=== PATIENT | female | born 1985 | race Caucasian/White ===

== ENCOUNTER 2017-01-02 21:05 | Inpatient (IN) | payer BC ==
[~2017-01-02] VITALS: Ht 157.5 cm; Wt 96.5 kg
[~2017-01-02 21:05] MED LIST: ALDOMET 250MG250 MG PO; AMOXICILLIN 8751 TAB PO; ENULOSE10 GM/151 PO; GAS AID MAXIMU125 MG PO; LEVAQUIN PO; MIRALAX PA17 GM/Dose PO; MIRENA; MOTRIN 600600 MG/TAB PO; MUCINEX D 12001 TER PO; PERCOCET 325 MG1 TA2 PO; PROCARDIA XL 6060 MG PO; SYNTHROID0.088 MG/T PO; TYLENOL 325MG325 MG PO; ZYRTEC 10MG10 MG PO
[2017-01-02 21:53] LABS: BASO % 0.4 % (0.0-2.0); EOS % 0.1 % (0-4.0); GRAN # 6.6 (1.4-6.5); GRAN % 82.2 % (42.2-75.2); HEMATOCRIT 41.2 % (37.0-47.0); HEMOGLOBIN 13.3 g/dl (12.5-16.0); LYMPH # 0.8 (1.2-3.4); LYMPH % 10.4 % (20.0-51.0); MEAN CELL VOLUME 88 fl (80.0-100.0); MEAN CORPUSCULAR HEMOGLOBIN 28 pg (27.0-31.0); MEAN CORPUSCULAR HGB CONC 32 g/dl (33.0-37.0); MEAN PLATELET VOLUME 10.4 fl (7.4-10.4); MONO # 0.5 (0.1-0.6); MONO % 6.5 % (1.7-9.3); PLATELET COUNT 261 K/mm3 (130-400); RED BLOOD COUNT 4.69 M/mm3 (4.10-5.30); REDCELL DISTRIBUTION WIDTH-CV 13.1 % (11.5-14.5)
[2017-01-02 22:01] LABS: ADJUSTED CALCIUM 8.9 mg/dL (8.4-10.2); ALBUMIN 4.2 gm/dL (3.5-5.0); BILIRUBIN,TOTAL 0.7 mg/dL (0.0-1.0); CALCIUM 9.1 mg/dL (8.4-10.2); CREATININE, serum 0.85 mg/dL (0.52-1.25); POTASSIUM 3.7 mmol/L (3.4-5.0); TOTAL PROTEIN 8.2 gm/dL (6.4-8.2)
[2017-01-02 22:12] LABS: INFLUENZA B NEGATIVE
[2017-01-02] MEDS ORDERED: ALBUTEROL SULFAT8 MG PO (22:23)
[2017-01-02] MEDS ORDERED: ALBUTEROL1.25 MG/3 IH (22:23)
[2017-01-02] MEDS ORDERED: TYLENOL 325MG325 MG PO (22:24)
[2017-01-02] MEDS ORDERED: MUCINEX 60600 MG/TA1 PO (22:24)
[2017-01-03] VITALS (7 sets, daily range): BP systolic 94–136; BP diastolic 59–77; PULSE 68–113; TEMP 98.1–99.1
[2017-01-03 07:54] LABS: CALCIUM 8.5 mg/dL (8.4-10.2); CREATININE, serum 0.61 mg/dL (0.52-1.25); POTASSIUM 3.9 mmol/L (3.4-5.0)
[2017-01-03] MEDS ORDERED: KLONOPIN 0.5MG0.5 MG PO (21:33)
[2017-01-04 07:40] VITALS: BP 126/82; PULSE 91; TEMP 98.5
[2017-01-04 07:43] LABS: BASO % 0.2 % (0.0-2.0); GRAN # 12.1 (1.4-6.5); LYMPH % 7.3 % (20.0-51.0); MEAN CELL VOLUME 90 fl (80.0-100.0); MEAN CORPUSCULAR HGB CONC 32 g/dl (33.0-37.0); MEAN PLATELET VOLUME 10.7 fl (7.4-10.4); MONO # 0.4 (0.1-0.6); MONO % 2.8 % (1.7-9.3); PLATELET COUNT 263 K/mm3 (130-400); RED BLOOD COUNT 3.83 M/mm3 (4.10-5.30); REDCELL DISTRIBUTION WIDTH-CV 13.4 % (11.5-14.5); WHITE BLOOD COUNT 13.6 K/mm3 (4.8-10.8)
[2017-01-04 08:08] LABS: CALCIUM 8.4 mg/dL (8.4-10.2); CREATININE, serum 0.61 mg/dL (0.52-1.25); POTASSIUM 3.4 mmol/L (3.4-5.0)
[2017-01-04 08:22] LABS: HEMATOCRIT 34.3 % (37.0-47.0); HEMOGLOBIN 10.9 g/dl (12.5-16.0); MEAN CORPUSCULAR HEMOGLOBIN 28 pg (27.0-31.0)
[2017-01-04 10:42] VITALS: TEMP 102.6
[2017-01-04 12:00] VITALS: BP 128/62; PULSE 108; TEMP 100.4
[2017-01-04 17:36] VITALS: BP 155/84; PULSE 114; TEMP 103.1
[2017-01-04 19:29] VITALS: BP 119/81; PULSE 104; TEMP 100.6
[2017-01-04 23:39] VITALS: BP 137/89; PULSE 108; TEMP 103
[2017-01-05] VITALS (8 sets, daily range): BP systolic 100–119; BP diastolic 62–68; PULSE 96–111; TEMP 98.5–103.2
[2017-01-05 02:56] LABS: PH 6 (5-8); SQUAMOUS EPITHELIAL 0-2 /hpf; URINE APPEARANCE Clear; URINE BACTERIA None Seen /hpf; URINE BILIRUBIN Negative (NEGATIVE); URINE BLOOD Negative (NEGATIVE); URINE COLOR Yellow; URINE GLUCOSE Negative (NEGATIVE); URINE KETONE Negative (NEGATIVE); URINE RBC 0-2 /hpf; URINE UROBILINOGEN Negative (NEGATIVE); URINE WBC 0-2 /hpf
[2017-01-05 08:49] LABS: BASO % 0.1 % (0.0-2.0); GRAN # 7.4 (1.4-6.5); GRAN % 88.2 % (42.2-75.2); LYMPH # 0.7 (1.2-3.4); LYMPH % 8.3 % (20.0-51.0); MEAN CELL VOLUME 88 fl (80.0-100.0); MEAN CORPUSCULAR HGB CONC 32 g/dl (33.0-37.0); MEAN PLATELET VOLUME 10.4 fl (7.4-10.4); MONO # 0.2 (0.1-0.6); MONO % 2.3 % (1.7-9.3); PLATELET COUNT 257 K/mm3 (130-400); RED BLOOD COUNT 4.01 M/mm3 (4.10-5.30); REDCELL DISTRIBUTION WIDTH-CV 13.8 % (11.5-14.5); WHITE BLOOD COUNT 8.3 K/mm3 (4.8-10.8)
[2017-01-05 09:06] LABS: CALCIUM 7.7 mg/dL (8.4-10.2); CREATININE, serum 0.72 mg/dL (0.52-1.25)
[2017-01-05 09:10] LABS: POTASSIUM 2.7 mmol/L (3.4-5.0)
[2017-01-05 09:12] LABS: HEMATOCRIT 35.4 % (37.0-47.0); HEMOGLOBIN 11.3 g/dl (12.5-16.0); MEAN CORPUSCULAR HEMOGLOBIN 28 pg (27.0-31.0)
[2017-01-06] VITALS (8 sets, daily range): BP systolic 100–170; BP diastolic 58–81; PULSE 88–123; TEMP 98.1–102.9
[2017-01-06 07:09] LABS: MEAN CELL VOLUME 91 fl (80.0-100.0); MEAN CORPUSCULAR HGB CONC 32 g/dl (33.0-37.0); MEAN PLATELET VOLUME 10.6 fl (7.4-10.4); PLATELET COUNT 211 K/mm3 (130-400); RED BLOOD COUNT 3.59 M/mm3 (4.10-5.30); REDCELL DISTRIBUTION WIDTH-CV 13.9 % (11.5-14.5); WHITE BLOOD COUNT 6.1 K/mm3 (4.8-10.8)
[2017-01-06 07:26] LABS: CALCIUM 7.7 mg/dL (8.4-10.2); CREATININE, serum 0.58 mg/dL (0.52-1.25); PHOSPHOROUS 2.7 mg/dL (2.5-4.5); POTASSIUM 3.7 mmol/L (3.4-5.0)
[2017-01-06 07:54] LABS: HEMATOCRIT 32.5 % (37.0-47.0); HEMOGLOBIN 10.4 g/dl (12.5-16.0); MEAN CORPUSCULAR HEMOGLOBIN 29 pg (27.0-31.0)
[2017-01-06 07:55] LABS: ADD PATHOLOGY DIFF REVIEW NO
[2017-01-06 12:58] LABS: BAND 17 % (0-10); NEUTROPHILS 58 % (42.0-75.2); PLATELET ESTIMATE NORMAL (NORMAL); TOTAL CELLS COUNTED 100
[2017-01-06 13:26] LABS: C-REACTIVE PROTEIN 24.5 mg/dL (0.0-0.9)
[2017-01-07 03:54] VITALS: BP 113/75; PULSE 93; TEMP 98.2
[2017-01-07 07:33] LABS: POTASSIUM 3.4 mmol/L (3.4-5.0)
[2017-01-07 07:42] VITALS: BP 123/77; PULSE 90; TEMP 98.3
[2017-01-07 11:44] VITALS: BP 112/71; PULSE 83; TEMP 98.4
[2017-01-07 14:25] LABS: THYROID STIMULATING HORMONE 3.37 uIU/mL (0.465-4.680)
[2017-01-07 16:34] VITALS: BP 129/71; PULSE 87; TEMP 99.5
[2017-01-07] MEDS ORDERED: CHERATUSSIN AC120 ML PO (17:44)
[2017-01-07] MEDS ORDERED: LEVAQUIN 750MG750 M1 PO (17:46)
[2017-01-07 19:05] VITALS: BP 133/74; PULSE 88; TEMP 98.7
[2017-01-08 22:41] LABS: PROT-CREAT RATIO, URINE 0.7 (())
== END 2017-01-07 22:58 | disposition home or self-care (01) | DRG 871 ==
LOC: COL.ER 21:05 → MEDICAL 22:54
PROVIDERS: Emergency Medicine; Internal Medicine; Internal Medicine Pulmonary Disease; Nurse Practitioner Family
DX: A41.9 Sepsis, unspecified organism (principal); J12.9 Viral pneumonia, unspecified; J96.01 Acute respiratory failure with hypoxia; E87.1 Hypo-osmolality and hyponatremia; E87.6 Hypokalemia; J20.9 Acute bronchitis, unspecified; J11.1 Influenza due to unidentified influenza virus with other respiratory manifestations; E87.8 Other disorders of electrolyte and fluid balance, not elsewhere classified
CPT/HCPCS: 99223-AI; 99233-AI; 99239; A9284; J0692; J1650; J1956; J2930; J7030; J7512; Q9967

== ENCOUNTER 2017-01-22 08:07 | Day surgery (SDC) | payer BC ==
[~2017-01-22] VITALS: Ht 157.5 cm; Wt 100.9 kg
[~2017-01-22 08:07] MED LIST changes: +ALBUTEROL SULFAT8 MG PO; +ALBUTEROL1.25 MG/3 IH; +CHERATUSSIN AC120 ML PO; +KLONOPIN 0.5MG0.5 MG PO; +LEVAQUIN 750MG750 M1 PO; +MUCINEX 60600 MG/TA1 PO
[2017-01-22 09:17] VITALS: BP 119/71; PULSE 90; TEMP 98.4
[2017-01-22] MEDS ORDERED: TESSALON PERLE200 MG PO (09:22)
[2017-01-22 11:00] VITALS: BP 117/72; PULSE 79; TEMP 98.1
[2017-01-22 11:15] VITALS: BP 115/70; PULSE 76
[2017-01-22 11:30] VITALS: BP 114/61; PULSE 76
[2017-01-22 14:09] LABS: BRONCH WASH FLUID MONONUCLEAR 29 % (0-75); BRONCH WASH POLY - PMN 71 % (0-25)
== END 2017-01-22 11:45 | disposition home or self-care (01) ==
LOC: SDCO 08:07
PROVIDERS: Internal Medicine Pulmonary Disease
DX: J18.9 Pneumonia, unspecified organism (principal)
CPT/HCPCS: J2704; J3010; J7120

== ENCOUNTER 2017-10-03 16:00 | Emergency (ER) | payer BC ==
[~2017-10-03] VITALS: Ht 157.5 cm; Wt 103.6 kg
[~2017-10-03 16:00] MED LIST changes: +TESSALON PERLE200 MG PO
[2017-10-03 16:04] VITALS: BP 119/69
[2017-10-03 16:58] LABS: BASO # 0.1 (0.0-0.2); BASO % 0.5 % (0.0-2.0); EOS # 0.1 (0.0-0.7); EOS % 0.4 % (0-4.0); GRAN # 8.5 (1.4-6.5); GRAN % 71.6 % (42.2-75.2); HEMATOCRIT 42.6 % (37.0-47.0); HEMOGLOBIN 13.8 g/dl (12.5-16.0); LYMPH # 2.4 (1.2-3.4); LYMPH % 20.5 % (20.0-51.0); MEAN CELL VOLUME 90 fl (80.0-100.0); MEAN CORPUSCULAR HEMOGLOBIN 29 pg (27.0-31.0); MEAN CORPUSCULAR HGB CONC 32 g/dl (33.0-37.0); MEAN PLATELET VOLUME 10.9 fl (7.4-10.4); MONO # 0.8 (0.1-0.6); MONO % 6.7 % (1.7-9.3); PLATELET COUNT 279 K/mm3 (130-400); RED BLOOD COUNT 4.73 M/mm3 (4.10-5.30); WHITE BLOOD COUNT 11.8 K/mm3 (4.8-10.8)
[2017-10-03 17:07] LABS: ADJUSTED CALCIUM 8.9 mg/dL (8.4-10.2); ALBUMIN 4.3 gm/dL (3.5-5.0); BILIRUBIN,TOTAL 0.4 mg/dL (0.0-1.0); C-REACTIVE PROTEIN 1.2 mg/dL (0.0-0.9); CALCIUM 9.1 mg/dL (8.4-10.2); CREATININE, serum 0.67 mg/dL (0.52-1.25); POTASSIUM 3.9 mmol/L (3.4-5.0); TOTAL PROTEIN 7.5 gm/dL (6.4-8.2)
[2017-10-03] MEDS ORDERED: BIAXIN 500MG T500 MG PO (17:11)
[2017-10-03] MEDS ORDERED: ZANTAC 150MG T150 MG PO (17:11)
[2017-10-03] MEDS ORDERED: PRILOSEC 20MG20 MG PO (17:12)
[2017-10-03] MEDS ORDERED: ACIDOPHILIS (17:12)
[2017-10-03 18:49] VITALS: PULSE 74; TEMP 98.3
== END 2017-10-03 18:44 | disposition home or self-care (01) ==
LOC: COL.ER 16:00
PROVIDERS: Nurse Practitioner
DX: N83.201 Unspecified ovarian cyst, right side (principal); Z32.02 Encounter for pregnancy test, result negative
CPT/HCPCS: J7030; J7050; Q9967

== ENCOUNTER → 2017-12-01 | Outpatient (CLI) | payer BC ==
[~2017-12-01] MED LIST changes: +ACIDOPHILIS; +BIAXIN 500MG T500 MG PO; +PRILOSEC 20MG20 MG PO; +ZANTAC 150MG T150 MG PO
== END ==
LOC: COL.RAD 14:16
DX: K21.0 Gastro-esophageal reflux disease with esophagitis (principal)

== ENCOUNTER 2019-12-28 05:16 | Observation (INO) | payer BC ==
[2019-12-28] VITALS (9 sets, daily range): BP systolic 98–129; BP diastolic 45–74; PULSE 62–88; TEMP 97.7–98.2
[~2019-12-28] VITALS: Ht 157.5 cm; Wt 94.8 kg
[2019-12-28] MEDS ORDERED: ZYRTEC 10MG10 MG PO (06:00)
[2019-12-28] MEDS ORDERED: SINGULAIR 110 MG/TAB PO (06:00)
[2019-12-28] MEDS ORDERED: GLUCOPHAGE500 MG/TAB PO (06:01)
[2019-12-28] MEDS ORDERED: MASON NATURAL2000 IU PO (06:01)
[2019-12-28] MEDS ORDERED: ONCOVITE1 TAB PO (06:01)
[2019-12-28] MEDS ORDERED: PROAIR HFA0.09 MG/AC IH (06:02)
[2019-12-28] MEDS ORDERED: 00186-0372-20 IH (06:02)
[2019-12-28] MEDS ORDERED: PERCOCET 325 MG1 TA2 PO (07:27)
[2019-12-28] MEDS ORDERED: ESTRACE 1MG1 MG/TAB PO (07:27)
[2019-12-28] MEDS ORDERED: COLACE 100100 MG/CAP PO (07:27)
[2019-12-28] MEDS ORDERED: MOTRIN 800800 MG/TAB PO (07:27)
--- NOTE | 2019-12-28 11:46 | NUR ---
Patient to room via bed. Alert and oriented x3. Patient rating pain in abd 5/10. describes as crampy pain. Requests to have pain medication as soon as she can. Family in room with the patient.
--- NOTE | 2019-12-28 11:55 | NUR ---
Administered Percocet as prescribed. Lap sites x4 on abd with bandaids CDI. Patient lying in bed with eyes open at this time. Family in room with the patient.
--- NOTE | 2019-12-28 12:45 | NUR ---
Patient up to bathroom to urinate. Gait slow, required assist of two to bathroom and back to bed. Having nausea up moving around. Zofran administered as prescribed. Patient assisted back into the bed. Oxygen on at 1.5L/NC. Family remains in room with the patient.
--- NOTE | 2019-12-28 14:26 | NUR ---
Patient ambulates to bathroom to void. Has some lightheadedness with position changes. Resolves when stays in same position for a few seconds. Voids clear yellow urine. Very minimal bloody discharge on toilet paper. Returns to bed. Gets a little nauseated but it resolves. Provided patient with jello and apple juice to try to eat. Explained that if she does okay with this we can get her regular diet for supper. Family remains in room. Patient denies further needs.
--- NOTE | 2019-12-28 16:36 | NUR ---
Having nausea and pain, requesting medication for nausea and pain. Ambulates into bathroom to urinate. Voids small amount clear yellow urine. One small pea size spot of blood noted on pad. Has small amount of emesis. Returns to bed. Assisted to comfortable position. Zofran administered as prescribed. Administered Percocet as prescribed for pain.
--- NOTE | 2019-12-28 17:44 | NUR ---
Patient ambulates into hallway and back to room. Goes to bathroom prior to getting into bed. Voids clear yellow urine. Returns to bed. Has some nausea at this time. Pain is better at this time.
--- NOTE | 2019-12-28 19:48 | NUR ---
Called facility environmental technician doc, Dr. Adrian Guan reguarding patients request for tylenol and also requested chloraceptic spray for sore throat. See new order, read back.
[2019-12-29 01:53] VITALS: BP 118/56; PULSE 81; TEMP 98.5
[2019-12-29 06:03] VITALS: BP 99/63; PULSE 99; TEMP 98.4
[2019-12-29 07:27] VITALS: BP 94/57; PULSE 60; TEMP 98.8
--- NOTE | 2019-12-29 10:54 | NUR ---
Pt currently sitting up in bed. She ambulated down the hallway, some complaints of dizziness.Pt stated that she had some nausea. Pt was trying to eat her breakfast, applied Scopolamine patch behind left ear. Pt was given the sitz bath and the Xylocaine gel, gel was applied after she voided. Dr. Torres rounded and plan of care reviewed, decided that she should stay one more day. Pt was also given new hormone medication, Estrace 1mg PO, education on this medication was provided. Pt has been encouraged to walk as tolerated, and call for assistance if needed. Pt's mother will bring [place] for her sore throat pt refused the Chloraseptic spray provided. Bed is in lowest postion and call light within reach.
--- NOTE | 2019-12-29 11:11 | NUR ---
MAGGIE met with the patient and her , Rafy ([id number]#[phone]), to discuss discharge plan. The patient lives in [place] with her and two children. She reports independence with ADLs and does not have any DME. The patient's PCP is Dr. Kaya Rubi and she receives her medications at [facility]. She reports no difficulties obtaining her meds. The patient does not have advanced directives completed, but she was interested in obtaining a form for DPOA-HC. MAGGIE provided. The patient plans to return home with her family upon discharge. No additional needs at this time.
[2019-12-29 12:04] VITALS: BP 113/49; PULSE 67; TEMP 98.2
--- NOTE | 2019-12-29 12:53 | NUR ---
Initial visit; Patient thanked Digital Archivist for introducing her self. Patient was using the telephone. Digital Archivist will follow up.
--- NOTE | 2019-12-29 15:49 | NUR ---
Pt currently sleeping with family at bed time. Call light is within reach,and bed is in lowest postion.
[2019-12-29 17:24] VITALS: BP 108/61; PULSE 70; TEMP 98.3
--- NOTE | 2019-12-29 18:22 | NUR ---
Assisted pt with shower. Pt was given pain medication after the shower. She stated that her abdomen wasn't in pain , but her bottom from the hemorrhoid surgery was painful and rated it at a 6 out of 10 on the pain scale. Gel was applied at this time on the incision from the hemorrhoid site. Pt has been ambulating down the [place] with mother. Pt has no complaints of pain at this time.
[2019-12-29 19:55] VITALS: BP 103/66; PULSE 66; TEMP 97.6
--- NOTE | 2019-12-29 20:16 | NUR ---
Pt doing ok. Alert and oriented with VSS. Took pm meds ok. Does have swallowing difficulty due to trauma with intubation. Throat is bruised. Heart and lung sounds normal. Firm abdomen and very bloated. Did ambulate in [place] this shift, about 200ft. Has not passed gas or had BM yet. 4 lap sites to abdomen, 3 AUTOMOTIVE ARTIST and 1 with bandaide. IV to L hand INT. Denies needs at this time. Call light within reach, will continue to monitor
--- NOTE | 2019-12-29 20:36 | NUR ---
Pt did have episode of mild epistaxis. Also states she passed gas
[2019-12-30 00:05] VITALS: BP 108/64; PULSE 54; TEMP 98.1
--- NOTE | 2019-12-30 00:25 | NUR ---
pt requested nursing to not bother her for meds and 0400 vitals
[2019-12-30 03:44] VITALS: BP 110/65; PULSE 58; TEMP 98.2
--- NOTE | 2019-12-30 06:20 | NUR ---
pt resting in bed, has not slept most of night. call light within reach, will continue to monitor
[2019-12-30 07:38] VITALS: BP 98/65; PULSE 56; TEMP 98.4
--- NOTE | 2019-12-30 10:16 | NUR ---
Follow-up visit; Patient thanked Ham Trimmer for looking in on her again and offering God's blessings.
--- NOTE | 2019-12-30 11:00 | NUR ---
Patient is discharging home. Discharge instructions discussed with patient. No questions verbalized. INT discontinued. Explained when her follow up appointments are. Explained she has follow ups scheduled with Dr Torres and Dr Castillo. She verbalized understanding. She has prescriptions to get filled at the pharmacy. Attempted to call them into [facility] for the patient but they were not answering and the voicemail is not working. Patient is aware she has to take the scripts there. All belongings packed up and sent with patient. Patient walked out via wheel chair by Dorie MCFARLAND.
== END 2019-12-30 11:00 | disposition home or self-care (01) ==
LOC: SDCO 05:16 → SURG 12:45 → SDCO 12-29 11:09 → SURG 12-29 11:10
PROVIDERS: ADMIT Obstetrics & Gynecology
DX: K64.8 Other hemorrhoids (principal); K64.4 Residual hemorrhoidal skin tags; N83.02 Follicular cyst of left ovary; N83.01 Follicular cyst of right ovary; N83.12 Corpus luteum cyst of left ovary; N80.0 Endometriosis of uterus; Z79.84 Long term (current) use of oral hypoglycemic drugs; K21.9 Gastro-esophageal reflux disease without esophagitis; K76.0 Fatty (change of) liver, not elsewhere classified; Z86.73 Personal history of transient ischemic attack (TIA), and cerebral infarction without residual deficits; Z85.828 Personal history of other malignant neoplasm of skin; Z91.048 Other nonmedicinal substance allergy status
CPT/HCPCS: OP; A4314; A9284; G0378; J0690; J1170; J1885; J2405; J2704; J2710; J3010; J7120